=== PATIENT | female | born 1955 | race American Indian/Alaskan Native ===

== ENCOUNTER 2018-02-25 06:54 | Day surgery (SDC) | payer MEDICARE ==
[~2018-02-25 06:54] MED LIST: ANCEF/STERILE WATER 2 GM/20 ML 2 GM/20 ML SYRINGE IV NR; HEPARIN 10,000 UNITS/10 ML ONE; MARCAINE-EPI 0.5%-1:200,000 INFILTRATI ONE; NACL 0.9% 1000 ML 1,000 ML IV SCH; NACL 0.9% 500 ML 500 ML ONE; PAPAVERINE ONE; PROTAMINE SULFATE ONE; XYLOCAINE 1%/ EPI 1:100,000 INFILTRATI ONE
[2018-02-25] MEDS ORDERED: DIPRIVAN 10 MG/ML IV ONE (06:55)
[2018-02-25] MEDS ORDERED: XYLOCAINE MPF 2% ONE (06:56)
[2018-02-25] MEDS ORDERED: DECADRON ONE (06:56)
[2018-02-25] MEDS ORDERED: ZOFRAN ONE (06:56)
[2018-02-25] MEDS ORDERED: DILAUDID ONE (06:56)
[2018-02-25] MEDS ORDERED: VERSED IV NR (07:00)
[2018-02-25] MEDS ORDERED: NACL BACTERIOSTATIC INFILTRATI ONE (07:28)
[2018-02-25] MEDS ORDERED: GELFOAM POWDER 1GM MM ONE (07:34)
[2018-02-25] MEDS ORDERED: GELFOAM TP ONE (07:35)
--- NOTE | 2018-02-25 07:42 | Anesthesia Consultation ---
Anesthesia Consult and Med Hx Date of service: 02/25/18 - Airway Anesthetic Teeth Evaluation: Edentulous ROM Head & Neck: Adequate Mental/Hyoid Distance: Adequate Mallampati Class: Class I Intubation Access Assessment: Probably Good - Pulmonary Exam CTA: Yes - Cardiac Exam Cardiac Exam: RRR - Pre-Operative Health Status ASA Pre-Surgery Classification: ASA4 Proposed Anesthetic Plan: General - Pulmonary Hx Smoking: No Hx Asthma: No Hx Respiratory Symptoms: No - Cardiovascular System Hx Hypertension: Yes Hx Coronary Artery Disease: No Hx Heart Attack/AMI: No - Central Nervous System Hx Neuromuscular Disorder: No Hx Psychiatric Problems: No - Gastrointestinal Hx Gastroesophageal Reflux Disease: No - Endocrine Hx Renal Disease: Yes Hx End Stage Renal Disease: Yes Hx Cirrhosis: No Hx Liver Disease: No Hx Thyroid Disease: No - Hematic Hx Sickle Cell Disease: No - Other Systems Hx Alcohol Use: No Hx Obesity: No - Additional Comments Anesthesia Medical History Comments: No GAC, No FHAC
[2018-02-25 07:54] LABS: Hematocrit 39.7 % (30.3-42.9); Hemoglobin 13.1 gm/dl (10.1-14.3); Mean Corpuscular HGB Conc 33 % (30-34); Mean Corpuscular Hemoglobin 29 pg (28-32); Mean Corpuscular Volume 86 fl (79-97); Platelet Count 151 K/mm3 (140-440); Red Cell Distribution Width 16.6 % (13.2-15.2)
[2018-02-25 07:55] LABS: Basophils % (Auto) 0.5 % (0.0-1.8); Eosinophils % (Auto) 0.8 % (0.0-4.3); Lymphocytes # (Auto) 2.5 K/mm3 (1.2-5.4); Lymphocytes % (Auto) 47.7 % (13.4-35.0); Monocytes # (Auto) 0.7 K/mm3 (0.0-0.8); Monocytes % (Auto) 13.7 % (0.0-7.3)
[2018-02-25] MEDS ORDERED: SUBLIMAZE IV PRN (07:58)
--- NOTE | 2018-02-25 07:58 | Anesthesia Day of Surgery ---
Anesthesia Day of Surgery - Day of Surgery Patient Examined: Yes Patient H&P Reviewed: Yes Patient is NPO: Yes
[2018-02-25 08:01] LABS: Calcium 9.7 mg/dL (8.4-10.2)
[2018-02-25] MEDS ORDERED: RIFADIN ONE (08:43)
[2018-02-25] MEDS ORDERED: NACL 0.9% 500 ML 500 ML ONE (08:44)
[2018-02-25] MEDS ORDERED: NITROGLYCERIN SYRINGE 0 ML ONE (09:20)
[2018-02-25] MEDS ORDERED: NITROGLYCERIN SYRINGE UD ONE (09:38)
[2018-02-25] MEDS ORDERED: MARCAINE-EPI 0.5%-1:200,000 INFILTRATI ONE (09:38)
[2018-02-25] MEDS ORDERED: RIFADIN IV ONE (09:39)
[2018-02-25] MEDS ORDERED: HEPARIN IV ONE ×2 (09:41→09:46)
[2018-02-25] MEDS ORDERED: NEO SYNEPHRINE ONE (09:42)
[2018-02-25] MEDS ORDERED: NACL 0.9% IR ONE (09:43)
[2018-02-25] MEDS ORDERED: NACL 0.9% 500 ML IRRIGATION ONE (09:44)
--- NOTE | 2018-02-25 10:24 | Short Stay Summary ---
Short Stay Documentation Date of service: 02/25/18 - History H&P: obtained from office - Allergies and Medications Current Medications: Allergies No Known Allergies Allergy (Unverified 02/25/18 07:17) Home Medications Medication Instructions Recorded Confirmed Last Taken Type Cinacalcet [Sensipar] 30 mg PO QDAY 02/25/18 02/25/18 02/24/18 History Ferric Citrate (Nf) [Auryxia (Nf)] 210 mg PO TID 02/25/18 02/25/18 02/24/18 History Active Medications Fentanyl (Sublimaze) 50 mcg IV Q15MIN PRN PRN Reason: Pain , Severe (7-10) Stop: 02/25/18 16:00 Cefazolin Sodium (Ancef/Sterile Water 2 Gm/20 Ml) 2 gm in 20 mls @ 80 mls/hr IV PREOP NR; Protocol Stop: 02/25/18 23:59 Sodium Chloride (Nacl 0.9% 1000 Ml) 1,000 mls @ 42 mls/hr IV DIRECT TYRESE Last Admin: 02/25/18 07:35 Dose: 42 mls/hr Documented by: Midazolam HCl (Versed) 2 mg IV PREOP NR Stop: 02/25/18 23:59 Last Admin: 02/25/18 08:06 Dose: 2 mg Documented by: - Brief post op/procedure progress note Date of procedure: 02/25/18 Pre-op diagnosis: ESRD Post-op diagnosis: same Procedure: LUE AVG, brachial artery to axillary vein, 5 mm Bovine Anesthesia: GETA, local Findings: Good thrill in AVG and 2+ radial pulse distal Surgeon: ELMA GUZMAN Estimated blood loss: minimal Pathology: none Condition: stable - Hospital course Hospital course: benign - Disposition Condition at discharge: Good Disposition: DC-01 TO HOME OR SELFCARE Short Stay Discharge Plan Activity: advance as tolerated Diet: advance as tolerated Wound: per your surgeon's advice Follow up with: ELMA GUZMAN MD [Staff Physician] - 14 Days Prescriptions: HYDROcodone/APAP 5-325 [[place] 5/325] 1 each PO Q6HR PRN #30 tablet PRN Reason: Pain
--- NOTE | 2018-02-25 10:25 | Operative Report ---
Operative Report Operative Report: Date of procedure: 02/25/2018 Pre-operative diagnosis: End-stage renal failure Post-operative diagnosis: Same Procedure name(s): Left upper extremity brachial artery to axillary vein bridge graft using bovine graft 5 mm Surgeon: Hollis Mcintyre MD Radiology Orderly: None Anesthesia: Local MAC EBL: Less than 50 mL Operative indication: Patient is a 62-year-old woman with end-stage renal failure and need for long-term hemodialysis access. Findings: Excellent thrill in the arteriovenous graft at the end of the procedure. And 2+ left radial pulse. Procedure: The patient was placed on the table in the supine position. The arm was prepped with ChloraPrep solution and draped in the usual sterile fashion. Under local anesthesia, an incision was made just above the elbow. Dissection was carried out to identify the brachial artery. The brachial artery was surrounded with Vesseloops proximally and distally. The brachial artery was approximately 5 mm in diameter. A second incision was made in the axilla and dissection was carried out to identify the axillary vein. This vein was also at least 7 mm in diameter. Vessel loops were placed proximally and distally. I should note that the wounds were infiltrated with half percent Marcaine and epinephrine prior to incision. The bovine graft was prepped according to the IFU. A tunnel was created in the upper arm between the 2 incisions using a Sweta-Wick tunneler. The tunnel was infiltrated with half percent Marcaine with epinephrine. The graft was anastomosed to the axillary vein in an end to side fashion using running 6-0 Prolene. The arterial anastomosis was completed in an end-to-side fashion. The arteriotomy was approximate 5 mm in length. A James catheter was used to break the spasm in the brachial artery proximally and distally to the anastomosis. The anastomosis is completed and flow was started into the arteriovenous graft with the development of an immediate and excellent thrill along the body of the graft. The left radial pulse remained palpable. Meticulous hemostasis was obtained. Closure was done with 3-0 Vicryl on the subcutaneous tissues tissue and 4-0 Monocryl on the subcuticular tissue. Sterile dressings were applied. The patient tolerated the procedure well. There was an easily palpable left r adial pulse at the end of the procedure. There was a good thrill in the graft at the end of the procedure. Sponge, needle, and instrument counts were reported as correct. The patient was taken from the operating room to the recovery room in stable condition.
[2018-02-25] MEDS ORDERED: NORCO 5/325 PO PRN (12:01)
[2018-02-25 12:29] VITALS: BP 122/68
== END 2018-02-25 06:55 | disposition home or self-care (01) ==
LOC: OR 06:54
PROVIDERS: ATTEND Surgery Vascular Surgery
DX: E11.22 Type 2 diabetes mellitus with diabetic chronic kidney disease (principal); I12.0 Hypertensive chronic kidney disease with stage 5 chronic kidney disease or end stage renal disease; N18.6 End stage renal disease; Z79.899 Other long term (current) drug therapy; Z99.2 Dependence on renal dialysis; Z98.890 Other specified postprocedural states
CPT/HCPCS: 36415; 36830; 80048; 82962; 85025; A4649; C1757; C1768; J0690; J1100; J1170; J1644; J2250; J2370; J2405; J2704; J3490; J7030; J7040; J2440; J2720